=== PATIENT | female | born 2005 | race Caucasian/White ===

== ENCOUNTER 2025-04-24 13:41 | Outpatient (CLI) | payer OTHER, SELFPAY ==
[2025-04-29 11:49] LABS: Pap Test Digital Imaging Done
== END 2025-04-24 13:42 | disposition home or self-care (01) ==
PROVIDERS: Visit Provider Advanced Practice Midwife
DX: Z12.4 Encounter for screening for malignant neoplasm of cervix (principal); Z11.3 Encounter for screening for infections with a predominantly sexual mode of transmission; Z11.51 Encounter for screening for human papillomavirus (HPV); Z11.59 Encounter for screening for other viral diseases; Z11.4 Encounter for screening for human immunodeficiency virus [HIV]
CPT/HCPCS: 86592; 86703; 86704; 86706; 86803; 87340; 87491; 87591; 87624; 87625; 88141; 88142; 88175